=== PATIENT | male | born 1970 | race Caucasian/White ===

== ENCOUNTER 2016-06-13 15:20 | Emergency (ER) | payer SELFPAY ==
[~2016-06-13] VITALS: Ht 175.3 cm; Wt 98.0 kg
[2016-06-13 15:36] VITALS: BP 119/82; PULSE 91; RESP 16; TEMP 98.6; O2SAT 99
[2016-06-13] MEDS ORDERED: SODIUM CHLOR 0.9% 1000 ML INJ 1,000 ML IV SCH (16:44)
[2016-06-13] MEDS ORDERED: SODIUM CHLORIDE 0.9% FLUSH 5 ML FLUSH IVF PRN (16:45)
--- NOTE | 2016-06-13 16:50 | PD ---
HPI Chief Complaint: Abdominal Pain Time Seen by Provider: 16:44 Travel History International Travel<30 days: No Contact w/Intl Traveler<30days: No Traveled to known affect area: No History of Present Illness HPI The patient is a 46-year-old male who presents emergency department for lower abdominal pain or last several days. The patient a 7 day history of lower abdominal pain that started in the right lower quadrant, now radiates left lower quadrant, and is similar to his previous episodes of diverticulitis. He also complains of urinary irritation with occasional slight urinary overflow, also notes difficulty urinating. He does have a history of possible large prostate with difficulty passing a catheter in the past. Patient denies any actual dysuria, frequency, but occasionally does have urgency. He denies any nausea, vomiting, fever, chills, or sweats. The patient requests no pain medications in the emergency department. PFSH Past Medical History Blood Disorders: No Anxiety: Yes Depression: Yes Heart Rhythm Problems: No Cancer: No Cardiac Catheterization: No Cardiovascular Problems: No High Cholesterol: No Congestive Heart Failure: No Diabetes: No Diminished Hearing: No Diverticulitis: Yes (2006) Endocrine: No Gastrointestinal Disorders: Yes Genitourinary: No Hypertension: No Immune Disorder: No Implanted Vascular Access Dvce: No Musculoskeletal: No Neurologic: No Psychiatric: Yes Reproductive: No Respiratory: Yes Immunizations Current: Yes Myocardial Infarction: No Past Surgical History Coronary Artery Bypass Graft: No Oral Surgery: Yes (CYST REMOVAL FROM UNDER TONGUE) Other Surgery: Yes (HAND SURGERY (TENDON)) Social History Alcohol Use: No Tobacco Use: No (QUIT 4 MONTHS AGO) Substance Use: No Allergies-Medications (Allergen,Severity, Reaction): Coded Allergies: Latex (Verified Allergy, Severe, Rash, 06/13/16) Codeine (Verified Adverse Reaction, Severe, VOMITING, 06/13/16) Reported Meds & Prescriptions Reported Meds & Active Scripts Active No Active Prescriptions or Reported Medications Review of Systems Except as stated in HPI: all other systems reviewed are Neg General / Constitutional: No: Fever Cardiovascular: No: Chest Pain or Discomfort Respiratory: No: Shortness of Breath Gastrointestinal: Positive: Abdominal Pain, No: Nausea, Vomiting, Diarrhea Genitourinary: Positive: Urgency, Hesitancy, Incontinence, No: Frequency, Dysuria, Hematuria Physical Exam Narrative GENERAL: Awake, alert, 46-year-old male who appears his stated age and is in no acute respiratory distress. SKIN: Warm and dry. HEAD: Atraumatic. Normocephalic. EYES: No injection or drainage. ENT: No nasal bleeding or discharge. Mucous membranes pink and moist. NECK: Trachea midline. No JVD. CARDIOVASCULAR: Regular rate and rhythm. No murmur appreciated. RESPIRATORY: No accessory muscle use. Clear to auscultation. Breath sounds equal bilaterally. GASTROINTESTINAL: Abdomen soft, tender palpation left lower quadrant. No rebound tenderness, guarding, or rigidity. Genitourinary: Circumcised phallus. MUSCULOSKELETAL: No obvious deformities. No clubbing. No cyanosis. No edema. NEUROLOGICAL: Awake and alert. No obvious cranial nerve deficits. Motor grossly within normal limits. Normal speech. PSYCHIATRIC: Appropriate mood and affect; insight and judgment normal. Data Data Last Documented VS Vital Signs Date Time Temp Pulse Resp B/P Pulse Ox O2 Delivery O2 Flow Rate FiO2 06/13/16 15:36 98.6 91 16 119/82 99 Orders Complete Blood Count With Diff (06/13/16 16:44) Comprehensive Metabolic Panel (06/13/16 16:44) Urinalysis - C+S If Indicated (06/13/16 16:44) Ct Abd/Pel W/O Iv Contrast (06/13/16 16:44) Iv Access Insert/Monitor (06/13/16 16:44) Ecg Monitoring (06/13/16 16:44) Oximetry (06/13/16 16:44) Sodium Chlor 0.9% 1000 Ml Inj (Ns 1000 M (06/13/16 16:44) Sodium Chloride 0.9% Flush (Ns Flush) (06/13/16 16:45) Labs Laboratory Tests Test 06/13/16 16:55 White Blood Count 6.5 TH/MM3 Red Blood Count 5.33 MIL/MM3 Hemoglobin 16.0 GM/DL Hematocrit 47.2 % Mean Corpuscular Volume 88.5 FL Mean Corpuscular Hemoglobin 30.0 PG Mean Corpuscular Hemoglobin 33.9 % Concent Red Cell Distribution Width 13.1 % Platelet Count 272 TH/MM3 Mean Platelet Volume 7.6 FL Neutrophils (%) (Auto) 53.3 % Lymphocytes (%) (Auto) 37.8 % Monocytes (%) (Auto) 6.6 % Eosinophils (%) (Auto) 1.7 % Basophils (%) (Auto) 0.6 % Neutrophils # (Auto) 3.6 TH/MM3 Lymphocytes # (Auto) 2.4 TH/MM3 Monocytes # (Auto) 0.4 TH/MM3 Eosinophils # (Auto) 0.1 TH/MM3 Basophils # (Auto) 0.0 TH/MM3 CBC Comment DIFF FINAL Differential Comment Sodium Level 143 MEQ/L Potassium Level 4.1 MEQ/L Chloride Level 108 MEQ/L Carbon Dioxide Level 27.5 MEQ/L Anion Gap 8 MEQ/L Blood Urea Nitrogen 17 MG/DL Creatinine 1.40 MG/DL Estimat Glomerular Filtration 55 ML/MIN Rate Random Glucose 98 MG/DL Calcium Level 8.3 MG/DL Total Bilirubin 0.5 MG/DL Aspartate Amino Transf 21 U/L (AST/SGOT) Alanine Aminotransferase 32 U/L (ALT/SGPT) Alkaline Phosphatase 81 U/L Total Protein 7.1 GM/DL Albumin 3.4 GM/DL MDM Medical Decision Making Medical Screen Exam Complete: Yes Emergency Medical Condition: Yes Medical Record Reviewed: Yes Interpretation(s) Last Impressions Abdomen/Pelvis CT 06/13/16 1644 Signed Impressions: Service Date/Time: Monday, June 13, 2016 17:11 - CONCLUSION: 1. Questionable mild acute diverticulitis involving distal descending colon with no free air or fluid. 2. 2 mm nonobstructing left renal calculus. Yunier Chairez MD Laboratory Tests Test 06/13/16 16:55 White Blood Count 6.5 TH/MM3 Red Blood Count 5.33 MIL/MM3 Hemoglobin 16.0 GM/DL Hematocrit 47.2 % Mean Corpuscular Volume 88.5 FL Mean Corpuscular Hemoglobin 30.0 PG Mean Corpuscular Hemoglobin 33.9 % Concent Red Cell Distribution Width 13.1 % Platelet Count 272 TH/MM3 Mean Platelet Volume 7.6 FL Neutrophils (%) (Auto) 53.3 % Lymphocytes (%) (Auto) 37.8 % Monocytes (%) (Auto) 6.6 % Eosinophils (%) (Auto) 1.7 % Basophils (%) (Auto) 0.6 % Neutrophils # (Auto) 3.6 TH/MM3 Lymphocytes # (Auto) 2.4 TH/MM3 Monocytes # (Auto) 0.4 TH/MM3 Eosinophils # (Auto) 0.1 TH/MM3 Basophils # (Auto) 0.0 TH/MM3 CBC Comment DIFF FINAL Differential Comment Sodium Level 143 MEQ/L Potassium Level 4.1 MEQ/L Chloride Level 108 MEQ/L Carbon Dioxide Level 27.5 MEQ/L Anion Gap 8 MEQ/L Blood Urea Nitrogen 17 MG/DL Creatinine 1.40 MG/DL Estimat Glomerular Filtration 55 ML/MIN Rate Random Glucose 98 MG/DL Calcium Level 8.3 MG/DL Total Bilirubin 0.5 MG/DL Aspartate Amino Transf 21 U/L (AST/SGOT) Alanine Aminotransferase 32 U/L (ALT/SGPT) Alkaline Phosphatase 81 U/L Total Protein 7.1 GM/DL Albumin 3.4 GM/DL Differential Diagnosis Differential diagnosis includes diverticulitis, atypical appendicitis, abdominal abscess, BPH, urethritis, complicated urinary tract infection. Narrative Course IV was established, labs are drawn and sent, and the patient was placed on cardiac telemetry monitoring and continuous pulse oximetry monitoring. The patient requested that no pain medications be administered. IV fluids were ordered. CT of the abdomen and pelvis without IV contrast was ordered to evaluate for possible diverticulitis with abscess. UA was ordered, however, patient requested that no urinary catheterization be performed. White count is normal, creatinine is mildly elevated at 1.4. CT the abdomen and pelvis reveals mild acute diverticulitis involving distal descending colon with no free air or fluid. The bladder reveals no wall thickening or mass. The patient does have difficulty urinating, may be secondary to benign prostatic hypertrophy. The patient is advised to follow-up with urology for further evaluation and possible cystoscopy. The patient was placed on Cipro and Flagyl for his diverticulitis. He will also be provided a copy of his CT results and lab results at discharge for follow-up with his primary physician. Diagnosis Primary Impression: Diverticulitis Qualified Code: K57.32 - Diverticulitis of large intestine without perforation or abscess without bleeding Patient Instructions: General Instructions Additional Instructions: Please provide a patient a copy of his CT results and lab results at discharge. Cipro and Flagyl as directed. Return if symptoms worsen or progress. Med/Other Pt SpecificInfo: Prescription(s) given Scripts Ciprofloxacin (Cipro)500 Mg [id number] Mg PO BID 7 Days Ref 0 Prov:Mike Justice MD 06/13/16 Metronidazole (Flagyl)500 Mg [id number] Mg PO QID 7 Days Ref 0 Prov:Mike Justice MD 06/13/16 Disposition: 01 DISCHARGE HOME Condition: Stable Mike Justice MD Jun 13, 2016 16:49
[2016-06-13 17:01] LABS: AUTOMATED NEUTROPHIL # 3.6 TH/MM3 (1.8-7.7); BASOPHIL % 0.6 % (0.0-2.0); EOSINOPHIL # 0.1 TH/MM3 (0-0.4); EOSINOPHIL % 1.7 % (0.0-4.0); HEMATOCRIT 47.2 % (39.0-51.0); HEMO FLAGS DIFF FINAL; LYMPH % 37.8 % (9.0-44.0); LYMPHOCYTE # 2.4 TH/MM3 (1.0-4.8); MEAN CELL VOLUME 88.5 FL (80.0-100.0); MEAN CORPUSCULAR HGB CONC 33.9 % (32.0-36.0); MONO % 6.6 % (0.0-8.0); NEUT % 53.3 % (16.0-70.0); PLATELET COUNT 272 TH/MM3 (150-450); RED BLOOD COUNT 5.33 MIL/MM3 (4.50-5.90); RED CELL DISTRIBUTION WIDTH 13.1 % (11.6-17.2); WHITE BLOOD COUNT 6.5 TH/MM3 (4.0-11.0)
[2016-06-13 17:09] LABS: CHLORIDE 108 MEQ/L (98-107); POTASSIUM 4.1 MEQ/L (3.5-5.1); SODIUM (NA) 143 MEQ/L (136-145)
[2016-06-13 17:13] LABS: ANION GAP 8 MEQ/L (5-15); BICARBONATE 27.5 MEQ/L (21.0-32.0); BLOOD UREA NITROGEN 17 MG/DL (7-18)
[2016-06-13 17:16] LABS: ALT (GPT) 32 U/L (12-78); AST (GOT) 21 U/L (15-37); GLOMERULAR FILTRATION RATE 55 ML/MIN (>89)
[2016-06-13 17:18] LABS: TOTAL BILIRUBIN ADULT 0.5 MG/DL (0.2-1.0)
[2016-06-13 17:19] LABS: ALKALINE PHOSPHATASE 81 U/L (45-117)
--- NOTE | 2016-06-13 17:39 | RADHPO ---
EXAM DATE/TIME: 06/13/2016 17:11 [facility] COMPARISON: No previous studies available for comparison. INDICATIONS : Lower pelvic pain, diverticulitis. ORAL CONTRAST: No oral contrast ingested. RADIATION DOSE: 18.48 CTDIvol (mGy) MEDICAL HISTORY : None SURGICAL HISTORY : None. ENCOUNTER: Initial ACUITY: 1 day PAIN SCALE: 5/10 LOCATION: abdomen TECHNIQUE: Volumetric scanning of the abdomen and pelvis was performed. Using automated exposure control and ad justment of the mA and/or kV according to patient size, radiation dose was kept as low as reasonably achievable to obtain optimal diagnostic quality images. FINDINGS: LOWER LUNGS: The visualized lower lungs are clear. LIVER: Homogeneous density without lesion. There is no dilation of the biliary tree. No calcified gallston es. SPLEEN: Normal size without lesion. PANCREAS: Within normal limits. KIDNEYS: Normal in size and shape. There is no mass or hydronephrosis. There is a single 2 mm nonobstructing left renal calculus ADRENAL GLANDS: Within normal limits. VASCULAR: There is no aortic aneurysm. BOWEL/MESENTERY: There are multiple diverticuli involving the distal descending colon and sigmoid colon with questiona ble minimal inflammatory change along the distal descending colon with no free air or fluid.ABDOMINAL WALL: Within normal limits. RETROPERITONEUM: There is no lymphadenopathy. BLADDER: No wall thickening or mass. REPRODUCTIVE: Within normal limits. INGUINAL: There is no lymphadenopathy or hernia. MUSCULOSKELETAL: Within normal limits for patient age. CONCLUSION: 1. Questionable mild acute diverticulitis involving distal descending colon with no free air or fluid . 2. 2 mm nonobstructing left renal calculus. Yunier Chairez MD on June 13, 2016 at 17:34 Board Certified Radiologist. This report was verified electronically.
[2016-06-13] MEDS ORDERED: CIPR-9 PO (18:04)
[2016-06-13] MEDS ORDERED: METR-1 PO (18:04)
== END 2016-06-13 18:59 | disposition home or self-care (01) ==
LOC: PHED 15:20
DX: K57.32 Diverticulitis of large intestine without perforation or abscess without bleeding (principal); R30.0 Dysuria; R39.15 Urgency of urination; Z86.59 Personal history of other mental and behavioral disorders; Z87.19 Personal history of other diseases of the digestive system; Z87.891 Personal history of nicotine dependence
CPT/HCPCS: 74176; 80053; 85025; 99284; J7030

== ENCOUNTER 2016-12-06 18:34 | Emergency (ER) | payer SELFPAY ==
[~2016-12-06] VITALS: Ht 175.3 cm; Wt 100.5 kg
[~2016-12-06 18:34] MED LIST: CIPR-9 PO; METR-1 PO
[2016-12-06 18:48] VITALS: BP 121/77; PULSE 66; RESP 16; TEMP 98.4; O2SAT 98
[2016-12-06] MEDS ORDERED: PRED20 PO (19:38)
[2016-12-06] MEDS ORDERED: diphenhydrAMINE HCL 25 MG CAP PO ONE (19:45)
[2016-12-06] MEDS ORDERED: DEXAMETHASONE SOD PHOS 4 MG/ML VIAL IM ONE (19:45)
--- NOTE | 2016-12-06 20:03 | PD ---
HPI Chief Complaint: Skin Problem Time Seen by Provider: 19:53 Travel History International Travel<30 days: No Contact w/Intl Traveler<30days: No Traveled to known affect area: No History of Present Illness HPI 46-year-old male presents to the emergency room for evaluation of itchy rash to his bilateral upper extremities and abdomen for the past 2 days. Patient was trimming trees when he first developed a rash. He thought it was poison hetal and applied calamine lotion and apple cider vinegar but states it seems to be spreading. It is extremely itchy especially at night. Patient went to the pharmacy today for more topical medications and the pharmacist recommended he come to the emergency room for steroids. Patient denies sore throat, shortness of breath, difficulty breathing. No chronic medical conditions or daily medications. PFSH Past Medical History Blood Disorders: No Anxiety: Yes Depression: Yes Heart Rhythm Problems: No Cancer: No Cardiac Catheterization: No Cardiovascular Problems: No High Cholesterol: No Congestive Heart Failure: No Diabetes: No Diminished Hearing: No Diverticulitis: Yes (2006) Endocrine: No Gastrointestinal Disorders: Yes Genitourinary: No Hypertension: No Immune Disorder: No Implanted Vascular Access Dvce: No Musculoskeletal: No Neurologic: No Psychiatric: Yes Reproductive: No Respiratory: Yes Immunizations Current: Yes Myocardial Infarction: No Tetanus Vaccination: < 5 Years Influenza Vaccination: No Past Surgical History Coronary Artery Bypass Graft: No Oral Surgery: Yes (CYST REMOVAL FROM UNDER TONGUE) Other Surgery: Yes (HAND SURGERY (TENDON)) Social History Alcohol Use: No Tobacco Use: Yes (1 PPD) Substance Use: No Allergies-Medications (Allergen,Severity, Reaction): Coded Allergies: Latex (Verified Allergy, Severe, Rash, 12/06/16) Codeine (Verified Adverse Reaction, Severe, VOMITING, 12/06/16) Reported Meds & Prescriptions Reported Meds & Active Scripts Active Prednisone 20 Mg Tab 40 Mg PO DAILY Take 40 mg (2 tablets) daily for 5 days Review of Systems Except as stated in HPI: all other systems reviewed are Neg Physical Exam Narrative GENERAL: Well-nourished, well-developed male in no acute distress. Afebrile. Ambulatory. SKIN: Focused skin assessment warm/dry. Multiple linear raised erythematous lesions to bilateral upper extremities. There is a large patch of erythema with very tiny vesicles on the anterior abdomen. HEAD: Normocephalic. EYES: No scleral icterus. No injection or drainage. NECK: Supple, trachea midline. No JVD or lymphadenopathy. CARDIOVASCULAR: Regular rate and rhythm without murmurs, gallops, or rubs. RESPIRATORY: Breath sounds equal bilaterally. No accessory muscle use. PSYCHIATRIC: No delusional thought processes. No hallucinations. Data Data Last Documented VS Vital Signs Date Time Temp Pulse Resp B/P Pulse Ox O2 Delivery O2 Flow Rate FiO2 12/06/16 18:48 98.4 66 16 121/77 98 Orders Dexamethasone Inj (Decadron Inj) (12/06/16 19:45) Diphenhydramine (Benadryl) (12/06/16 19:45) Famotidine (Pepcid) (12/06/16 21:00) [facility] Medical Decision Making Medical Screen Exam Complete: Yes Emergency Medical Condition: Yes Medical Record Reviewed: Yes Differential Diagnosis Poison hetal, allergic dermatitis, scabies Narrative Course 46-year-old male presents to the emergency room for evaluation of itchy rash to bilateral upper extremities and abdomen for the past 2 days. Rash started after patient touched poison hetal. He went to the pharmacy and they recommended he come to the emergency room for steroids. Physical exam reveals a linear raised erythematous lesions to bilateral upper extremities and large area of erythema with tiny vesicles on the abdomen. Patient was given Decadron, Benadryl, and Pepcid in the emergency room and discharged with prescription for prednisone. Told to follow-up with a primary care physician or return for worsening symptoms. Understands and agrees to plan. Diagnosis Primary Impression: Poison hetal dermatitis Referrals: Primary Care Physician Patient Instructions: General Instructions, Poison Hetal (ED) Additional Instructions: Rest and drink plenty of fluids. Take prednisone as directed, until gone. Continue topical treatments for relief of itchiness. Follow-up with a primary care physician. Return to the emergency room for worsening symptoms. Med/Other Pt SpecificInfo: Prescription(s) given Scripts Prednisone 20 Mg Tab40 Mg PO DAILY #10 TAB Ref 0 Take 40 mg (2 tablets) daily for 5 days Prov:Ananth Miller MD 12/06/16 Disposition: 01 DISCHARGE HOME Condition: Stable Roseanne Payne Dec 06, 2016 20:03
[2016-12-06] MEDS ORDERED: FAMOTIDINE 20 MG TAB PO SCH (21:00)
== END 2016-12-06 20:15 | disposition home or self-care (01) ==
LOC: PHEFT 18:34
DX: L23.7 Allergic contact dermatitis due to plants, except food (principal)
CPT/HCPCS: 96372; 99284; J1100

== ENCOUNTER 2016-12-19 18:02 | Emergency (ER) | payer SELFPAY ==
[~2016-12-19] VITALS: Ht 175.3 cm; Wt 98.9 kg
[~2016-12-19 18:02] MED LIST changes: -CIPR-9 PO; -METR-1 PO; +PRED20 PO
[2016-12-19 18:09] VITALS: BP 131/78; PULSE 73; RESP 16; TEMP 98; O2SAT 98
[2016-12-19] MEDS ORDERED: PROPARACAINE HCL 0.5% OPHT SOLN 15 ML BTL EACH EYE ONE (19:00)
--- NOTE | 2016-12-19 19:09 | PD ---
HPI Chief Complaint: Foreign Body Time Seen by Provider: 18:55 Travel History International Travel<30 days: No Contact w/Intl Traveler<30days: No Traveled to known affect area: No History of Present Illness HPI 46-year-old male presents to the emergency room for evaluation of foreign body to his left eye that occurred earlier today. Patient was mowing the lawn with safety glasses but some dirt got under the glasses and stuck in his eye. He tried to rinse it out without success. Since then he has had increasing pain, foreign body sensation, redness, mild photophobia, and tearing of the left eye. Denies changes in visual acuity. Last tetanus was one year ago. PFSH Past Medical History Blood Disorders: No Anxiety: Yes Depression: Yes Heart Rhythm Problems: No Cancer: No Cardiac Catheterization: No Cardiovascular Problems: No High Cholesterol: No Congestive Heart Failure: No Diabetes: No Diminished Hearing: No Diverticulitis: Yes (2006) Endocrine: No Gastrointestinal Disorders: Yes Genitourinary: No Hypertension: No Immune Disorder: No Implanted Vascular Access Dvce: No Musculoskeletal: No Neurologic: No Psychiatric: Yes Reproductive: No Respiratory: Yes Immunizations Current: Yes Myocardial Infarction: No Past Surgical History Coronary Artery Bypass Graft: No Oral Surgery: Yes (CYST REMOVAL FROM UNDER TONGUE) Other Surgery: Yes (HAND SURGERY (TENDON)) Social History Alcohol Use: No Tobacco Use: Yes (1 PPD) Substance Use: No Allergies-Medications (Allergen,Severity, Reaction): Coded Allergies: latex (Unverified Allergy, Severe, Rash, 12/19/16) codeine (Unverified Adverse Reaction, Severe, VOMITING, 12/19/16) Reported Meds & Prescriptions Reported Meds & Active Scripts Active Erythromycin Opth Oint 5 Mg/Gm Oint 1 Applic LEFT EYE QID Review of Systems Except as stated in HPI: all other systems reviewed are Neg Physical Exam Narrative GENERAL: Well-nourished, well-developed male in no acute distress. Afebrile. Ambulatory. SKIN: Focused skin assessment warm/dry. HEAD: Normocephalic. EYES: PERRL, EOMI without pain, no discharge. Mild injection of the left eye. No scleral icterus. Visual acuity is 20/25 bilaterally. Fluorescein staining reveals foreign body at the 2 o'clock position and abrasion at the 5 o'clock position. Negative Jurgen sign. No significant photophobia on exam. Positive red light reflex. NECK: Supple, trachea midline. No JVD or lymphadenopathy. CARDIOVASCULAR: Regular rate and rhythm without murmurs, gallops, or rubs. RESPIRATORY: Breath sounds equal bilaterally. No accessory muscle use. PSYCHIATRIC: No delusional thought processes. No hallucinations. Data Data Last Documented VS Vital Signs Date Time Temp Pulse Resp B/P (MAP) Pulse Ox O2 Delivery O2 Flow Rate FiO2 12/19/16 18:09 98.0 73 16 131/78 (95) 98 Orders Orders Proparacaine 0.5% Opth Soln (Alcaine 0.5 (12/19/16 19:00) MDM Medical Decision Making Medical Screen Exam Complete: Yes Emergency Medical Condition: Yes Medical Record Reviewed: Yes Differential Diagnosis Corneal abrasion, ulceration, foreign body Narrative Course 46-year-old male presents to the emergency room for evaluation of foreign body to his left eye that occurred earlier today. Physical exam reveals foreign body at the 2 o'clock position of the left cornea. Visual acuity 20/25 bilaterally. Fluorescein staining reveals foreign body at the 2 o'clock position and abrasion at 5 o'clock position. Negative Jurgen sign. Foreign body was removed and patient discharged with prescription for erythromycin eye ointment. Told to follow up with a supervisor vacuum metalizing or return for worsening symptoms. He understands and agrees to plan. Diagnosis Primary Impression: Foreign body of left eye Qualified Codes: T15.92XA - Foreign body on external eye, part unspecified, left eye, initial encounter Referrals: User Interface Designer Additional Instructions: Rest and drink plenty of fluids. Apply ointment to affected eye 4 times daily for 3-5 days. Follow-up with a primary care physician. Return to the emergency room for worsening symptoms. Med/Other Pt SpecificInfo: Prescription(s) given Scripts Erythromycin Opth Oint (Erythromycin Opth Oint) 5 Mg/Gm Oint 1 APPLIC LEFT EYE QID for Infection, #1 TUBE 0 Refills Prov: Cruzito Wetzel MD 12/19/16 Disposition: 01 DISCHARGE HOME Condition: Stable Roseanne Payne Dec 19, 2016 19:09
[2016-12-19] MEDS ORDERED: ERYTOIN10 LEFT EYE (19:57)
== END 2016-12-19 20:18 | disposition home or self-care (01) ==
LOC: PHEFT 18:02
DX: T15.92XA Foreign body on external eye, part unspecified, left eye, initial encounter (principal); Y93.H2 Activity, gardening and landscaping
CPT/HCPCS: 99283

== ENCOUNTER 2017-01-05 13:41 | Emergency (ER) | payer SELFPAY ==
[~2017-01-05] VITALS: Ht 175.3 cm; Wt 99.0 kg
[~2017-01-05 13:41] MED LIST changes: +ERYTOIN10 LEFT EYE; -PRED20 PO
[2017-01-05 13:45] VITALS: BP 136/83; PULSE 66; RESP 18; TEMP 98.3
--- NOTE | 2017-01-05 14:41 | PD ---
HPI Chief Complaint: Back/ Neck Pain or Injury Time Seen by Provider: 14:03 Travel History International Travel<30 days: No Contact w/Intl Traveler<30days: No Traveled to known affect area: No History of Present Illness HPI 46 year-old male presents to the emergency room for evaluation of low back pain that started 1 week ago. Pain started while patient was trying to lift a heavy dresser up a flight of stairs. States he took a week off work because the pain was so severe. States he is here for a note to return to work tomorrow because his job has demanded it. He has been taking ibuprofen with moderate relief in symptoms. Pain is in the lower back and radiates to the left. No radiation down the leg. No saddle anesthesia, loss of bowel or bladder control, lower extremities seizures, IV drug use, fever, chills, weight loss. No chronic medical conditions or daily medications. History Past Medical Histgory Hx Cancer: No Social History Alcohol Use: No Tobacco Use: Yes (1 PPD) Allergies-Medications (Allergen,Severity, Reaction): Coded Allergies: latex (Unverified Allergy, Severe, Rash, 01/05/17) codeine (Unverified Adverse Reaction, Severe, VOMITING, 01/05/17) Reported Meds & Prescriptions Reported Meds & Active Scripts Active Review of Systems Except as stated in HPI: all other systems reviewed are Neg Physical Exam Narrative GENERAL: Well-nourished, well-developed male in no acute distress. Afebrile. Ambulatory. SKIN: Focused skin assessment warm/dry. No erythema or ecchymosis. HEAD: Normocephalic. EYES: No scleral icterus. No injection or drainage. NECK: Supple, trachea midline. No JVD or lymphadenopathy. CARDIOVASCULAR: Regular rate and rhythm without murmurs, gallops, or rubs. RESPIRATORY: Breath sounds equal bilaterally. No accessory muscle use. BACK: Midline tenderness. No obvious deformity. No CVA tenderness. Tenderness to palpation of the left lower paraspinous musculature. Data Data Last Documented VS Vital Signs Date Time Temp Pulse Resp B/P (MAP) Pulse Ox O2 Delivery O2 Flow Rate FiO2 01/05/17 13:45 98.3 66 18 136/83 (100) MDM Medical Screen Exam Complete: Yes Emergency Medical Condition: No Differential Diagnosis Back strain Narrative Course 46-year-old male presents to the emergency room for evaluation of low back pain that started 1 week ago after lifting a dresser the stairs. Pain has been improving with ibuprofen. No focal neurological deficits. No red flag symptoms. No midline tenderness. This is muscle strain. No indication for imaging at this time. Patient mostly presents for note to return to work. There are no urgent or emergent medical conditions at this time. Patient was given outpatient resources for follow-up. A medical screening exam was performed: At the time of evaluation the presenting medical condition was determined not to be of an emergent nature. The patient was given the option of receiving additional care, but declined. Patient was given options for additional community resources from which to obtain care. The Patient Has Been advised to seek medical attention for their presenting complaint. The patient has been advised to return to the ER at any time if an emergent condition develops. Primary Impression: Encounter for medical screening examination Condition: Roseanne Ramirez Jan 05, 2017 14:41
== END 2017-01-05 14:45 | disposition left against medical advice (07) ==
LOC: PHEFT 13:41
DX: Z02.89 Encounter for other administrative examinations (principal)
CPT/HCPCS: 99281

== ENCOUNTER 2017-02-08 20:08 | Emergency (ER) | payer SELFPAY ==
[~2017-02-08] VITALS: Ht 175.3 cm; Wt 99.1 kg
[2017-02-08 20:11] VITALS: BP 138/79; PULSE 75; RESP 16; TEMP 98.1; O2SAT 99
[2017-02-08] MEDS ORDERED: SODIUM CHLOR 0.9% 1000 ML INJ 1,000 ML IV SCH (20:23)
[2017-02-08] MEDS ORDERED: SODIUM CHLORIDE 0.9% FLUSH 10 ML FLUSH IV FLUSH PRN (20:30)
--- NOTE | 2017-02-08 20:36 | PD ---
HPI Chief Complaint: Abdominal Pain Time Seen by Provider: 20:23 Travel History International Travel<30 days: No Contact w/Intl Traveler<30days: No Traveled to known affect area: No History of Present Illness HPI 46-year-old male presents to the emergency department by private transportation the care of his spouse for evaluation of left lower quadrant abdominal pain and prior history of diverticulitis. Patient denies fever or chills. Patient denies chest pain or shortness of breath. Patient's had intermittent diaphoresis. Patient has noted no flank pain dysuria frequency urgency testicular pain or hematuria. Patient has noted mucoid and intermittent bloody stool. Patient rates pain 8/10 in intensity. Patient states symptoms of present for 3 days. Patient did take a one-time dose of Advil 400 mg yesterday around noon but is taking no medications today. Patient states he is trying to adjust his diet to increase fiber intake. Patient states he does experience some dizziness episodes. Patient denies any chronic medical conditions. PFSH Past Medical History Narrative Medical Review of medical records anxiety depression diverticulitis left hand tendon repair tobacco use; nursing notes reviewed Blood Disorders: No Anxiety: Yes Depression: Yes Heart Rhythm Problems: No Cancer: No Cardiac Catheterization: No Cardiovascular Problems: No High Cholesterol: No Congestive Heart Failure: No Diabetes: No Diminished Hearing: No Diverticulitis: Yes (2006) Endocrine: No Gastrointestinal Disorders: Yes Genitourinary: No Hypertension: No Immune Disorder: No Implanted Vascular Access Dvce: No Musculoskeletal: No Neurologic: No Psychiatric: Yes Reproductive: No Respiratory: Yes Immunizations Current: Yes Myocardial Infarction: No Past Surgical History Coronary Artery Bypass Graft: No Oral Surgery: Yes (CYST REMOVAL FROM UNDER TONGUE) Other Surgery: Yes (HAND SURGERY (TENDON)) Social History Alcohol Use: No Tobacco Use: Yes (1 PPD) Substance Use: No Allergies-Medications (Allergen,Severity, Reaction): Coded Allergies: latex (Unverified Allergy, Severe, Rash, 01/05/17) codeine (Unverified Adverse Reaction, Severe, VOMITING, 01/05/17) Reported Meds & Prescriptions Reported Meds & Active Scripts Active Review of Systems Except as stated in HPI: all other systems reviewed are Neg General / Constitutional: No: Fever, Chills HENT: No: Congestion Cardiovascular: Positive: Diaphoresis, No: Chest Pain or Discomfort Respiratory: No: Shortness of Breath Gastrointestinal: Positive: Nausea, Diarrhea, Abdominal Pain Genitourinary: No: Dysuria, Hematuria, Decreased Urinary Output, Flank Pain Musculoskeletal: No: Myalgias, Arthralgias Skin: No Rash Neurologic: Positive: Dizziness, No: Weakness, Syncope, Focal Abnormalities, Coordination Problem Psychiatric: No: Anxiety Endocrine: No: Heat Intolerance Hematologic/Lymphatic: No: Easy Bruising Physical Exam Narrative GENERAL: Well-developed well-nourished male in no acute distress no respiratory distress mild left lower quadrant tenderness to direct palpation without guarding or rebound SKIN: Warm and dry. HEAD: Normocephalic. EYES: No scleral icterus. No injection or drainage. NECK: Supple, trachea midline. No JVD or lymphadenopathy. CARDIOVASCULAR: Regular rate and rhythm without murmurs, gallops, or rubs. RESPIRATORY: Breath sounds equal bilaterally. No accessory muscle use. GASTROINTESTINAL: Abdomen soft, non-tender, nondistended. MUSCULOSKELETAL: No cyanosis, or edema. BACK: Nontender without obvious deformity. No CVA tenderness. Data Data Last Documented VS Vital Signs Date Time Temp Pulse Resp B/P (MAP) Pulse Ox O2 Delivery O2 Flow Rate FiO2 02/08/17 22:22 72 16 138/72 (94) 100 Room Air 02/08/17 20:11 98.1 Orders Orders Complete Blood Count With Diff (02/08/17 20:23) Comprehensive Metabolic Panel (02/08/17 20:23) Lipase (02/08/17 20:23) Lactic Acid (02/08/17 20:23) Urinalysis - C+S If Indicated (02/08/17 20:23) Iv Access Insert/Monitor (02/08/17 20:23) Ecg Monitoring (02/08/17 20:23) Oximetry (02/08/17 20:23) Sodium Chlor 0.9% 1000 Ml Inj (Ns 1000 M (02/08/17 20:23) Sodium Chloride 0.9% Flush (Ns Flush) (02/08/17 20:30) Ct Abd/Pel W Iv Contrast(Rout) (02/08/17 ) Ketorolac Inj (Toradol Inj) (02/08/17 21:30) Ondansetron Inj (Zofran Inj) (02/08/17 21:30) Iohexol 350 Inj (Omnipaque 350 Inj) (02/08/17 21:48) Ed Discharge Order (02/08/17 22:26) Labs Laboratory Tests Test 02/08/17 20:25 White Blood Count 8.3 TH/MM3 Red Blood Count 5.32 MIL/MM3 Hemoglobin 16.3 GM/DL Hematocrit 47.6 % Mean Corpuscular Volume 89.4 FL Mean Corpuscular Hemoglobin 30.5 PG Mean Corpuscular Hemoglobin Concent 34.1 % Red Cell Distribution Width 12.2 % Platelet Count 233 TH/MM3 Mean Platelet Volume 8.2 FL Neutrophils (%) (Auto) 41.8 % Lymphocytes (%) (Auto) 47.5 % Monocytes (%) (Auto) 6.4 % Eosinophils (%) (Auto) 3.8 % Basophils (%) (Auto) 0.5 % Neutrophils # (Auto) 3.5 TH/MM3 Lymphocytes # (Auto) 4.0 TH/MM3 Monocytes # (Auto) 0.5 TH/MM3 Eosinophils # (Auto) 0.3 TH/MM3 Basophils # (Auto) 0.0 TH/MM3 CBC Comment DIFF FINAL Differential Comment Urine Color YELLOW Urine Turbidity CLEAR Urine pH 6.0 Urine Specific [place] 1.020 Urine Protein NEG mg/dL Urine Glucose (UA) NEG mg/dL Urine Ketones NEG mg/dL Urine Occult Blood NEG Urine Nitrite NEG Urine Bilirubin NEG Urine Leukocyte Esterase NEG Urine WBC 0-2 /hpf Urine Squamous Epithelial Cells 0-5 /hpf Microscopic Urinalysis Comment CULT NOT INDICATED Blood Urea Nitrogen 17 MG/DL Creatinine 1.10 MG/DL Random Glucose 119 MG/DL Total Protein 7.2 GM/DL Albumin 3.5 GM/DL Calcium Level 8.5 MG/DL Alkaline Phosphatase 75 U/L Aspartate Amino Transf (AST/SGOT) 15 U/L Alanine Aminotransferase (ALT/SGPT) 24 U/L Total Bilirubin 0.2 MG/DL Sodium Level 137 MEQ/L Potassium Level 3.9 MEQ/L Chloride Level 104 MEQ/L Carbon Dioxide Level 26.6 MEQ/L Anion Gap 6 MEQ/L Estimat Glomerular Filtration Rate 72 ML/MIN Lactic Acid Level 1.1 mmol/L Lipase 232 U/L MDM Medical Decision Making Medical Screen Exam Complete: Yes Emergency Medical Condition: Yes Medical Record Reviewed: Yes Interpretation(s) Lactic acid: 1.1, not elevated ua: wnl Last Impressions Abdomen/Pelvis CT 02/08/17 0000 Signed Impressions: Service Date/Time: Wednesday, February 08, 2017 21:43 - CONCLUSION: 1. Stable tiny 3 mm nonobstructing stone left kidney. 2. Diverticulosis of the descending and sigmoid colon without inflammatory changes. 3. No acute pathology. Jamin Verdin MD CBC & BMP Diagram 02/08/17 20:25 Total Protein 7.2, Albumin 3.5, Calcium Level 8.5, Alkaline Phosphatase 75, Aspartate Amino Transf (AST/SGOT) 15, Alanine Aminotransferase (ALT/SGPT) 24, Total Bilirubin 0.2 Vital Signs Date Time Temp Pulse Resp B/P (MAP) Pulse Ox O2 Delivery O2 Flow Rate FiO2 02/08/17 22:22 72 16 138/72 (94) 100 Room Air 02/08/17 20:11 98.1 75 16 138/79 (98) 99 Differential Diagnosis Abdominal pain, diverticulitis, abscess, colitis, renal colic, UTI, anemia, unlikely viscus perforation Narrative Course Patient placed on monitor IV access obtained specimens collected and sent for resulting patient career advisor normal saline 1 L Patient waiting on lab results resting comfortably voicing no concerns or complaints CBC is automated differential metabolic panel and urinalysis values are found to be in normal range patient continues complaining of left lower quadrant abdominal pain therefore will proceed with CT abdomen and pelvis with IV contrast Patient administered Zofran 4 mg IV and Toradol [address] abdomen and pelvis with IV contrast identifies 3 mm lower pole left kidney stone but no evidence of hydronephrosis hydroureter or obstructive process abdomen and pelvis imaging study otherwise remarkable for scattered diverticulosis without evidence of diverticulitis no abscess no perforation appendix is normal. Otherwise to be a unremarkable CT per reading radiologist Laboratory results and imaging results discussed with patient was spouse at bedside; patient's questions were answered to his satisfaction; patient is informed of normal lab values and left sided kidney stone diverticulosis without evidence for acute process and stable for outpatient management. Patient encouraged to return to the emergency department for any concerns or change in condition. Patient encouraged to follow-up with gastrologist as needed and primary care provider. Diagnosis Primary Impression: Abdominal pain Qualified Codes: R10.32 - Left lower quadrant pain Additional Impression: Nephrolithiasis Referrals: [facility] as needed Patient Instructions: General Instructions Additional Instructions: Increase fluid hydration Continue add fiber containing foods and beverages to dietary intake Follow-up with primary care provider Follow up with gastrologist Return to the emergency department for any concerns or change in condition Take the medicine/Tylenol as needed for fever 100.4F or greater take ibuprofen 600 mg as often as every 6 hours or 800 mg as often as every 8 hours as needed for fever 100.4F or greater or for pain associated with inflammation; avoid high-dose 800 mg use of ibuprofen on a regular basis Med/Other Pt SpecificInfo: No Meds Exist/No RX given Disposition: 01 DISCHARGE HOME Condition: Stable Jesusita Turcios MD Feb 08, 2017 20:36
[2017-02-08 20:56] LABS: AUTOMATED NEUTROPHIL # 3.5 TH/MM3 (1.8-7.7); BASOPHIL % 0.5 % (0.0-2.0); BLOOD, URINE NEG (NEG); EOSINOPHIL # 0.3 TH/MM3 (0-0.4); EOSINOPHIL % 3.8 % (0.0-4.0); GLUCOSE,URINE NEG (NEG); HEMATOCRIT 47.6 % (39.0-51.0); HEMO FLAGS DIFF FINAL; KETONE, URINE NEG (NEG); LYMPH % 47.5 % (9.0-44.0); MEAN CELL VOLUME 89.4 FL (80.0-100.0); MEAN CORPUSCULAR HEMOGLOBIN 30.5 PG (27.0-34.0); MEAN CORPUSCULAR HGB CONC 34.1 % (32.0-36.0); MONO % 6.4 % (0.0-8.0); NEUT % 41.8 % (16.0-70.0); NITRITE,URINE NEG (NEG); PLATELET COUNT 233 TH/MM3 (150-450); RED BLOOD COUNT 5.32 MIL/MM3 (4.50-5.90); RED CELL DISTRIBUTION WIDTH 12.2 % (11.6-17.2); WHITE BLOOD COUNT 8.3 TH/MM3 (4.0-11.0)
[2017-02-08 21:02] LABS: COMMENT (UR) CULT NOT INDICATED; CULTURE IF INDICATED CULT NOT INDICATED; SQUAMOUS EPITHELIAL CELL URINE 0-5 /hpf (0-5); URINE COLOR YELLOW (YELLW/STRAW); WBC, URINE 0-2 /hpf (0-5)
[2017-02-08 21:09] LABS: CHLORIDE 104 MEQ/L (98-107); POTASSIUM 3.9 MEQ/L (3.5-5.1); SODIUM (NA) 137 MEQ/L (136-145)
[2017-02-08 21:12] LABS: ANION GAP 6 MEQ/L (5-15); BICARBONATE 26.6 MEQ/L (21.0-32.0)
[2017-02-08 21:13] LABS: BLOOD UREA NITROGEN 17 MG/DL (7-18)
[2017-02-08 21:15] LABS: ALT (GPT) 24 U/L (12-78); AST (GOT) 15 U/L (15-37)
[2017-02-08 21:16] LABS: GLOMERULAR FILTRATION RATE 72 ML/MIN (>89)
[2017-02-08 21:17] LABS: TOTAL BILIRUBIN ADULT 0.2 MG/DL (0.2-1.0)
[2017-02-08 21:18] LABS: ALKALINE PHOSPHATASE 75 U/L (45-117)
[2017-02-08] MEDS ORDERED: KETOROLAC TROMETHAMINE 30 MG/ML (IVP) VIAL IV PUSH ONE (21:30)
[2017-02-08] MEDS ORDERED: ONDANSETRON HCL 4 MG/2 ML VIAL IV PUSH ONE (21:30)
[2017-02-08] MEDS ORDERED: IOHEXOL 350 MG/ML 10 ML VIAL (for RAD DIAG) IVCONTRAST ONE (21:48)
--- NOTE | 2017-02-08 22:14 | RADRPT ---
EXAM DATE/TIME: 02/08/2017 21:43 [facility] COMPARISON: CT ABDOMEN & PELVIS W/O CONTRAST, June 13, 2016, 17:11. INDICATIONS : Lower abdomen pain with nausea, vomiting, and diarrhea. IV CONTRAST: 100 cc Omnipaque 350 (iohexol) IV ORAL CONTRAST: No oral contrast ingested. RADIATION DOSE: 21.05 CTDIvol (mGy) MEDICAL HISTORY : Diverticulitis. SURGICAL HISTORY : None. ENCOUNTER: Initial ACUITY: 3 days PAIN SCALE: 7/10 LOCATION: lower quadrant abdomen TECHNIQUE: Volumetric scanning of the abdomen and pelvis was performed. Using automated exposure control and ad justment of the mA and/or kV according to patient size, radiation dose was kept as low as reasonably achievable to obtain optimal diagnostic quality images. DICOM format image data is available electro nically for review and comparison. FINDINGS: LOWER LUNGS: The visualized lower lungs are clear. LIVER: Homogeneous density without lesion. There is no dilation of the biliary tree. No calcified gallston es. SPLEEN: Normal size without lesion. PANCREAS: Within normal limits. KIDNEYS: Normal in size and shape. There is no mass or hydronephrosis. Stable tiny 3 mm stone lower pole left kidney not causing obstruction. Ureters are nondilated. ADRENAL GLANDS: Within normal limits. VASCULAR: There is no aortic aneurysm. BOWEL/MESENTERY: The stomach, small bowel, and colon demonstrate no acute abnormality. There is no free intraperitone al air or fluid. The appendix is unremarkable. Scatter diverticulosis of the descending and sigmoid c olon without inflammatory changes. ABDOMINAL WALL: Within normal limits. RETROPERITONEUM: There is no lymphadenopathy. BLADDER: No wall thickening or mass. REPRODUCTIVE: Within normal limits. INGUINAL: There is no lymphadenopathy or hernia. MUSCULOSKELETAL: Within normal limits for patient age. No significant changes compared to the prior study. CONCLUSION: 1. Stable tiny 3 mm nonobstructing stone left kidney. 2. Diverticulosis of the descending and sigmoid colon without inflammatory changes. 3. No acute pathology. Jamin Verdin MD on February 08, 2017 at 22:09 Board Certified Radiologist. This report was verified electronically.
[2017-02-08 22:22] VITALS: BP 138/72; PULSE 72; RESP 16; O2SAT 100
== END 2017-02-08 22:41 | disposition home or self-care (01) ==
LOC: PHED 20:08
DX: R10.32 Left lower quadrant pain (principal); N20.0 Calculus of kidney
CPT/HCPCS: 74177; 80053; 81001; 83605; 83690; 85025; 96361; 96374; 96375; 99285; J1885; J2405; J7030; Q9967

== ENCOUNTER 2017-03-13 19:18 | Emergency (ER) | payer SELFPAY ==
[~2017-03-13] VITALS: Ht 175.3 cm; Wt 100.8 kg
[2017-03-13 19:57] VITALS: BP 125/77; PULSE 72; RESP 20; TEMP 98.6; O2SAT 98
--- NOTE | 2017-03-13 20:19 | PD ---
HPI Chief Complaint: Flank/Kidney Pain Time Seen by Provider: 20:19 Travel History International Travel<30 days: No Contact w/Intl Traveler<30days: No Traveled to known affect area: No History of Present Illness HPI 47-year-old male came to the emergency room with history of right flank pain that has been going on for past 2 weeks. Patient says that he was diagnosed with a renal calculi by an MRI. He does have associated urgency, frequency and dysuria. Pain gets worse when he coughs. Currently at 7-8 out of 10. No history of fever or chills. No history of nausea or vomiting. Patient does have history of kidney stones as well as diverticulitis. Vital signs were otherwise stable. No history of hematuria. No history of blood in his urine. [facility] Past Medical History Narrative Medical List of his past medical, surgical, social and family history is reviewed from the nursing note. Blood Disorders: No Anxiety: Yes Depression: Yes Heart Rhythm Problems: No Cancer: No Cardiac Catheterization: No Cardiovascular Problems: No High Cholesterol: No Congestive Heart Failure: No Diabetes: No Diminished Hearing: No Diverticulitis: Yes (2006) Endocrine: No Gastrointestinal Disorders: Yes Genitourinary: No Hypertension: No Immune Disorder: No Implanted Vascular Access Dvce: No Musculoskeletal: No Neurologic: No Psychiatric: Yes Reproductive: No Respiratory: Yes Immunizations Current: Yes Myocardial Infarction: No Past Surgical History Coronary Artery Bypass Graft: No Oral Surgery: Yes (CYST REMOVAL FROM UNDER TONGUE) Other Surgery: Yes (HAND SURGERY (TENDON)) Social History Alcohol Use: Yes (OCCASIONALLY) Tobacco Use: Yes (1 PPD) Substance Use: No Allergies-Medications (Allergen,Severity, Reaction): Coded Allergies: latex (Unverified Allergy, Severe, Rash, 03/20/17) codeine (Unverified Adverse Reaction, Severe, VOMITING, 03/20/17) Comments List of his allergies reviewed from the nursing note. Reported Meds & Prescriptions Reported Meds & Active Scripts Active Narrative Medication List of his home medications reviewed from the nursing note. Review of Systems Except as stated in HPI: all other systems reviewed are Neg Genitourinary: Positive: Flank Pain Physical Exam Narrative GENERAL: Awake, alert, moderate distress SKIN: Focused skin assessment warm/dry. HEAD: Atraumatic. Normocephalic. EYES: Pupils equal and round. No scleral icterus. No injection or drainage. ENT: No nasal bleeding or discharge. Mucous membranes pink and moist. NECK: Trachea midline. No JVD. CARDIOVASCULAR: Regular rate and rhythm. No murmur appreciated. RESPIRATORY: No accessory muscle use. Clear to auscultation. Breath sounds equal bilaterally. GASTROINTESTINAL: Abdomen soft, non-tender, nondistended. Hepatic and splenic margins not palpable. MUSCULOSKELETAL: No obvious deformities. No clubbing. No cyanosis. No edema. NEUROLOGICAL: Awake and alert. No obvious cranial nerve deficits. Motor grossly within normal limits. Normal speech. PSYCHIATRIC: Appropriate mood and affect; insight and judgment normal. Data Data Last Documented VS Orders Orders Complete Blood Count With Diff (03/13/17 20:22) Basic Metabolic Panel (Bmp) (03/13/17 20:22) Urinalysis - C+S If Indicated (03/13/17 20:22) Ct Abd/Pel W/O Iv Contrast (03/13/17 20:22) Ecg Monitoring (03/13/17 20:22) Iv Access Insert/Monitor (03/13/17 20:22) Ketorolac Inj (Toradol Inj) (03/13/17 20:30) Morphine Inj (Morphine Inj) (03/13/17 20:30) Ondansetron Inj (Zofran Inj) (03/13/17 20:30) Sodium Chloride 0.9% Flush (Ns Flush) (03/13/17 20:30) Sodium Chlor 0.9% 1000 Ml Inj (Ns 1000 M (03/13/17 20:22) Ed Discharge Order (03/13/17 22:31) Labs Laboratory Tests Test 03/13/17 20:32 03/13/17 20:40 Urine Color YELLOW Urine Turbidity CLEAR Urine pH 6.0 Urine Specific [place] 1.028 Urine Protein NEG mg/dL Urine Glucose (UA) NEG mg/dL Urine Ketones NEG mg/dL Urine Occult Blood NEG Urine Nitrite NEG Urine Bilirubin NEG Urine Leukocyte Esterase NEG Urine WBC 0-2 /hpf Urine Squamous Epithelial Cells 0-5 /hpf Microscopic Urinalysis Comment CULT NOT INDICATED White Blood Count 7.4 TH/MM3 Red Blood Count 5.36 MIL/MM3 Hemoglobin 16.5 GM/DL Hematocrit 47.9 % Mean Corpuscular Volume 89.4 FL Mean Corpuscular Hemoglobin 30.9 PG Mean Corpuscular Hemoglobin Concent 34.5 % Red Cell Distribution Width 12.9 % Platelet Count 232 TH/MM3 Mean Platelet Volume 8.0 FL Neutrophils (%) (Auto) 42.0 % Lymphocytes (%) (Auto) 46.9 % Monocytes (%) (Auto) 8.1 % Eosinophils (%) (Auto) 2.5 % Basophils (%) (Auto) 0.5 % Neutrophils # (Auto) 3.1 TH/MM3 Lymphocytes # (Auto) 3.5 TH/MM3 Monocytes # (Auto) 0.6 TH/MM3 Eosinophils # (Auto) 0.2 TH/MM3 Basophils # (Auto) 0.0 TH/MM3 CBC Comment DIFF FINAL Differential Comment Blood Urea Nitrogen 14 MG/DL Creatinine 1.10 MG/DL Random Glucose 91 MG/DL Calcium Level 8.1 MG/DL Sodium Level 141 MEQ/L Potassium Level 3.6 MEQ/L Chloride Level 107 MEQ/L Carbon Dioxide Level 25.8 MEQ/L Anion Gap 8 MEQ/L Estimat Glomerular Filtration Rate 72 ML/MIN MDM Medical Decision Making Medical Screen Exam Complete: Yes Emergency Medical Condition: Yes Medical Record Reviewed: Yes Differential Diagnosis Ureteral colic, pyelonephritis, musculoskeletal pain, lumbar radiculopathy Narrative Course 8:26 PM patient was medicated for pain. He is getting 1 L of IV fluid bolus. Awaiting for blood test and CAT scan to be done and resulted. 10:31 PM patient's blood test results and UA are within normal limits. CT scan is negative for anything acute. I'll discharge him home. Procedures EKG Prior to Arrival: No Diagnosis Primary Impression: Musculoskeletal pain Additional Impression: Acute exacerbation of chronic low back pain Referrals: Primary Care Physician Med/Other Pt SpecificInfo: Prescription(s) given Disposition: 01 DISCHARGE HOME Condition: Stable Danna Givens MD Mar 13, 2017 20:19
[2017-03-13] MEDS ORDERED: SODIUM CHLOR 0.9% 1000 ML INJ 1,000 ML IV ONE (20:22)
[2017-03-13 20:30] VITALS: BP 132/75; PULSE 62; RESP 18; O2SAT 97
[2017-03-13] MEDS ORDERED: KETOROLAC TROMETHAMINE 30 MG/ML (IVP) VIAL IV PUSH ONE (20:30)
[2017-03-13] MEDS ORDERED: MORPHINE SULFATE 4 MG/ML INJ IV PUSH ONE (20:30)
[2017-03-13] MEDS ORDERED: ONDANSETRON HCL 4 MG/2 ML VIAL IV PUSH ONE (20:30)
[2017-03-13] MEDS ORDERED: SODIUM CHLORIDE 0.9% FLUSH 10 ML FLUSH IVF PRN (20:30)
[2017-03-13 21:08] LABS: AUTOMATED NEUTROPHIL # 3.1 TH/MM3 (1.8-7.7); BASOPHIL % 0.5 % (0.0-2.0); EOSINOPHIL # 0.2 TH/MM3 (0-0.4); EOSINOPHIL % 2.5 % (0.0-4.0); HEMATOCRIT 47.9 % (39.0-51.0); HEMO FLAGS DIFF FINAL; LYMPH % 46.9 % (9.0-44.0); LYMPHOCYTE # 3.5 TH/MM3 (1.0-4.8); MEAN CELL VOLUME 89.4 FL (80.0-100.0); MEAN CORPUSCULAR HEMOGLOBIN 30.9 PG (27.0-34.0); MEAN CORPUSCULAR HGB CONC 34.5 % (32.0-36.0); MONO % 8.1 % (0.0-8.0); PLATELET COUNT 232 TH/MM3 (150-450); RED BLOOD COUNT 5.36 MIL/MM3 (4.50-5.90); RED CELL DISTRIBUTION WIDTH 12.9 % (11.6-17.2); WHITE BLOOD COUNT 7.4 TH/MM3 (4.0-11.0)
[2017-03-13 21:15] LABS: BLOOD, URINE NEG (NEG); GLUCOSE,URINE NEG (NEG); KETONE, URINE NEG (NEG); NITRITE,URINE NEG (NEG)
[2017-03-13 21:23] LABS: POTASSIUM 3.6 MEQ/L (3.5-5.1)
[2017-03-13 21:27] LABS: BICARBONATE 25.8 MEQ/L (21.0-32.0)
[2017-03-13 21:33] LABS: URINE COLOR YELLOW (YELLW/STRAW)
[2017-03-13 21:34] LABS: COMMENT (UR) CULT NOT INDICATED; CULTURE IF INDICATED CULT NOT INDICATED; SQUAMOUS EPITHELIAL CELL URINE 0-5 /hpf (0-5); WBC, URINE 0-2 /hpf (0-5)
--- NOTE | 2017-03-13 22:26 | RADRPT ---
EXAM DATE/TIME: 03/13/2017 21:02 [facility] COMPARISON: CT ABDOMEN & PELVIS W/O CONTRAST, June 13, 2016, 17:11. INDICATIONS : Right flank pain. ORAL CONTRAST: No oral contrast ingested. RADIATION DOSE: 20.84 CTDIvol (mGy) MEDICAL HISTORY : Diabetes mellitus type 2. SURGICAL HISTORY : None. ENCOUNTER: Initial ACUITY: 1 day PAIN SCALE: 8/10 LOCATION: Right flank TECHNIQUE: Volumetric scanning of the abdomen and pelvis was performed. Using automated exposure control and adjustment of the mA and/or kV according to patient size, radiation dose was kept as low as reasonably achievable to obtain optimal diagnostic quality images. DICOM format image data is av ailable electronically for review and comparison. FINDINGS: There are nonobstructing renal stones seen bilaterally. This includes a 5 mm stone in the inferior left collecting system and a 3 mm stone in the superior right collecting system. There is no hydronephrosis. A renal mass is not seen. There are a few scattered tiny subcentimeter hyperdensities in the liver. This could represent a sma ll cyst or hemangiomas. They are nonspecific on this noncontrast CT examination. No calcified galls tones are seen. The spleen, pancreas and adrenal glands are normal. The aorta and IVC are unremarka ble. The appendix is normal. There are scattered diverticula seen in the colon particularly on the l eft side. Significant inflammatory change is not seen. Prostatic calcifications are present. Pelvic structures appear otherwise normal. CONCLUSION: 1. Bilateral small nonobstructing renal stones. 2. Scattered colonic diverticula without significant inflammatory change. 3. Tiny hypodensities in the liver likely representing small cysts or hemangiomas statistically. They are nonspecific on this noncontrast CT examination. Andrei Villagran MD on March 13, 2017 at 22:16 Board Certified Radiologist. This report was verified electronically.
[2017-03-13] MEDS ORDERED: IBUP-232 PO (22:32)
[2017-03-13 23:05] VITALS: BP 99/65; PULSE 67; RESP 16; O2SAT 98
== END 2017-03-13 23:26 | disposition home or self-care (01) ==
LOC: PHED 19:18
DX: M79.1 Myalgia (principal); M54.5 Low back pain; G89.29 Other chronic pain; N20.0 Calculus of kidney
CPT/HCPCS: 74176; 80048; 81001; 85025; 96361; 96374; 96375; 99285; J1885; J2270; J2405; J7030

== ENCOUNTER 2017-03-20 16:57 | Emergency (ER) | payer SELFPAY ==
[~2017-03-20] VITALS: Ht 175.3 cm; Wt 100.0 kg
[~2017-03-20 16:57] MED LIST changes: -ERYTOIN10 LEFT EYE; +IBUP-232 PO
[2017-03-20 16:59] VITALS: BP 131/82; PULSE 82; RESP 17; TEMP 98.3; O2SAT 99
== END 2017-03-20 18:10 | disposition left against medical advice (07) ==
LOC: NEPK 16:57
DX: M54.9 Dorsalgia, unspecified (principal); Z53.21 Procedure and treatment not carried out due to patient leaving prior to being seen by health care provider
CPT/HCPCS: 99281

== ENCOUNTER 2017-04-09 17:04 | Emergency (ER) | payer SELFPAY ==
[~2017-04-09] VITALS: Ht 175.3 cm; Wt 103.0 kg
[2017-04-09 17:06] VITALS: BP 136/85; PULSE 92; RESP 16; TEMP 99.2; O2SAT 96
[2017-04-09] MEDS ORDERED: SODIUM CHLOR 0.9% 1000 ML INJ 1,000 ML IV SCH (17:32)
--- NOTE | 2017-04-09 17:35 | PD ---
HPI Chief Complaint: Abdominal Pain Time Seen by Provider: 17:27 Travel History International Travel<30 days: No Contact w/Intl Traveler<30days: No Traveled to known affect area: No History of Present Illness HPI 47-year-old male here for evaluation of abdominal pain. The patient has history of diverticulitis and believes that this may be causing his pain. Pain is located in his right lower quadrant, has been there for about a week, described as sharp/stabbing, 8 out of 10, intermittently worse at times, worse with movements. He denies fevers or chills. No nausea or vomiting. No diarrhea. No melena or hematochezia. He has been having increased or frequency , however denies dysuria or hematuria. No pain or swelling. No decrease in appetite. He has not had a colonoscopy. PFSH Past Medical History Blood Disorders: No Anxiety: Yes Depression: Yes Heart Rhythm Problems: No Cancer: No Cardiac Catheterization: No Cardiovascular Problems: No High Cholesterol: No Congestive Heart Failure: No Diabetes: No Diminished Hearing: No Diverticulitis: Yes (2006) Endocrine: No Gastrointestinal Disorders: Yes Genitourinary: No Hypertension: No Immune Disorder: No Implanted Vascular Access Dvce: No Musculoskeletal: No Neurologic: No Psychiatric: Yes Reproductive: No Respiratory: Yes Immunizations Current: Yes Myocardial Infarction: No Past Surgical History Coronary Artery Bypass Graft: No Oral Surgery: Yes (CYST REMOVAL FROM UNDER TONGUE) Other Surgery: Yes (HAND SURGERY (TENDON)) Social History Alcohol Use: Yes (OCCASIONALLY) Tobacco Use: Yes (1 PPD) Substance Use: No Allergies-Medications (Allergen,Severity, Reaction): Coded Allergies: latex (Unverified Allergy, Severe, Rash, 04/09/17) codeine (Unverified Adverse Reaction, Severe, VOMITING, 04/09/17) Reported Meds & Prescriptions Reported Meds & Active Scripts Active Review of Systems Except as stated in HPI: all other systems reviewed are Neg Physical Exam Narrative GENERAL: Well-developed, well-nourished, comfortable, no apparent distress. SKIN: Focused skin assessment warm/dry. No rash. HEAD: Atraumatic. Normocephalic. EYES: Pupils equal and round. No scleral icterus. No injection or drainage. ENT: Mucous membranes pink and moist. NECK: Trachea midline. No JVD. CARDIOVASCULAR: Regular rate and rhythm. No murmur appreciated. RESPIRATORY: No accessory muscle use. Clear to auscultation. Breath sounds equal bilaterally. GASTROINTESTINAL: Abdomen soft, nondistended. Moderate right lower quadrant tenderness without arterial signs. Rest of abdomen is soft and nontender. No hernias. Normal bowel sounds. : Normal exam without hernias, masses, or swelling. MUSCULOSKELETAL: No obvious deformities. No clubbing. No cyanosis. No edema. NEUROLOGICAL: Awake and alert. No obvious cranial nerve deficits. Motor grossly within normal limits. Normal speech. PSYCHIATRIC: Appropriate mood and affect; insight and judgment normal. Data Data Last Documented VS Vital Signs Date Time Temp Pulse Resp B/P (MAP) Pulse Ox O2 Delivery O2 Flow Rate FiO2 04/09/17 19:06 Room Air 04/09/17 17:06 99.2 92 16 96 Orders Orders Complete Blood Count With Diff (04/09/17 17:32) Comprehensive Metabolic Panel (04/09/17 17:32) Lipase (04/09/17 17:32) Prothrombin Time / Inr (Pt) (04/09/17 17:32) Act Partial Throm Time (Ptt) (04/09/17 17:32) Urinalysis - C+S If Indicated (04/09/17 17:32) Ct Abd/Pel W Iv Contrast(Rout) (04/09/17 17:32) Iv Access Insert/Monitor (04/09/17 17:32) Ecg Monitoring (04/09/17 17:32) Oximetry (04/09/17 17:32) Morphine Inj (Morphine Inj) (04/09/17 17:45) Ondansetron Inj (Zofran Inj) (04/09/17 17:45) Sodium Chlor 0.9% 1000 Ml Inj (Ns 1000 M (04/09/17 17:32) Sodium Chloride 0.9% Flush (Ns Flush) (04/09/17 17:45) Oral Contrast - Adult (04/09/17 17:37) Diatrizoate Liq ( Gastroview Liq) (04/09/17 18:00) Iohexol 350 Inj (Omnipaque 350 Inj) (04/09/17 19:16) Labs Laboratory Tests Test 04/09/17 17:35 04/09/17 17:40 Urine Color YELLOW Urine Turbidity CLEAR Urine pH 5.5 Urine Specific [place] 1.022 Urine Protein NEG mg/dL Urine Glucose (UA) NEG mg/dL Urine Ketones NEG mg/dL Urine Occult Blood NEG Urine Nitrite NEG Urine Bilirubin NEG Urine Urobilinogen LESS THAN 2.0 MG/DL Urine Leukocyte Esterase NEG Urine RBC LESS THAN 1 /hpf Urine WBC LESS THAN 1 /hpf Urine Squamous Epithelial Cells <1 /hpf Urine Mucus FEW /lpf Microscopic Urinalysis Comment CULT NOT INDICATED White Blood Count 8.0 TH/MM3 Red Blood Count 5.23 MIL/MM3 Hemoglobin 16.6 GM/DL Hematocrit 47.1 % Mean Corpuscular Volume 90.1 FL Mean Corpuscular Hemoglobin 31.8 PG Mean Corpuscular Hemoglobin Concent 35.3 % Red Cell Distribution Width 13.6 % Platelet Count 216 TH/MM3 Mean Platelet Volume 8.2 FL Neutrophils (%) (Auto) 53.3 % Lymphocytes (%) (Auto) 36.9 % Monocytes (%) (Auto) 7.9 % Eosinophils (%) (Auto) 1.6 % Basophils (%) (Auto) 0.3 % Neutrophils # (Auto) 4.3 TH/MM3 Lymphocytes # (Auto) 3.0 TH/MM3 Monocytes # (Auto) 0.6 TH/MM3 Eosinophils # (Auto) 0.1 TH/MM3 Basophils # (Auto) 0.0 TH/MM3 CBC Comment DIFF FINAL Differential Comment Prothrombin Time 9.4 SEC Prothromb Time International Ratio 0.9 RATIO Activated Partial Thromboplast Time 24.5 SEC Blood Urea Nitrogen 13 MG/DL Creatinine 1.02 MG/DL Random Glucose 94 MG/DL Total Protein 7.2 GM/DL Albumin 3.4 GM/DL Calcium Level 8.1 MG/DL Alkaline Phosphatase 77 U/L Aspartate Amino Transf (AST/SGOT) 28 U/L Alanine Aminotransferase (ALT/SGPT) 44 U/L Total Bilirubin 0.3 MG/DL Sodium Level 137 MEQ/L Potassium Level 4.4 MEQ/L Chloride Level 103 MEQ/L Carbon Dioxide Level 25.6 MEQ/L Anion Gap 8 MEQ/L Estimat Glomerular Filtration Rate 78 ML/MIN Lipase 334 U/L [facility] Medical Decision Making Medical Screen Exam Complete: Yes Emergency Medical Condition: Yes Medical Record Reviewed: Yes Differential Diagnosis Appendicitis, colitis, diverticulitis, UTI, cystitis, nephrolithiasis Narrative Course Vital signs show heart rate 92, blood pressure 136/85, pulse ox 96% on room air , tympanic temp of 99.2F. CBC is unremarkable. CMP is unremarkable. UA is not suggestive of UTI. No hematuria. CT abdomen pelvis: CONCLUSION: 1. No acute abnormality is seen. 2. Left colon diverticula. 3. Hepatic steatosis. 4. Several small stable hypodensities in the liver. These are nonspecific. They likely represent cysts or hemangiomas. 5. Nonobstructing small 2 mm left renal stone. Patient was made aware of all findings. He is resting comfortably. He is stable for discharge home with further outpatient follow-up with a primary care physician this week. I will also given the name of the wine maker provider relations specialist with whom to follow-up with this week. He was informed on when to return to the emergency department. He verbalizes understanding and agreement with plan. Diagnosis Primary Impression: Abdominal pain Qualified Codes: R10.31 - Right lower quadrant pain Referrals: Merary Hendricks MD 3 days Steward/Stewardess [facility] 3 days Primary Care Physician 3 days Additional Instructions: Follow-up with a primary care physician this week. Follow-up with wine maker Dr. Hendricks or a wine maker of your choice this week. Return to the emergency department for worsening symptoms or any other concerns. Disposition: 01 DISCHARGE HOME Condition: Stable Darci Das MD Apr 09, 2017 17:35
[2017-04-09] MEDS ORDERED: MORPHINE SULFATE 4 MG/ML INJ IV PUSH ONE (17:45)
[2017-04-09] MEDS ORDERED: ONDANSETRON HCL 4 MG/2 ML VIAL IVP ONE (17:45)
[2017-04-09] MEDS ORDERED: SODIUM CHLORIDE 0.9% FLUSH 10 ML FLUSH IV FLUSH PRN (17:45)
[2017-04-09] MEDS ORDERED: DIATRIZOATE MEGLUM/DIATRIZOATE SOD 9 ML CUP PO ONE (18:00)
[2017-04-09 18:18] LABS: AUTOMATED NEUTROPHIL # 4.3 TH/MM3 (1.8-7.7); BASOPHIL % 0.3 % (0.0-2.0); EOSINOPHIL # 0.1 TH/MM3 (0-0.4); EOSINOPHIL % 1.6 % (0.0-4.0); HEMATOCRIT 47.1 % (39.0-51.0); HEMO FLAGS DIFF FINAL; LYMPH % 36.9 % (9.0-44.0); MEAN CELL VOLUME 90.1 FL (80.0-100.0); MEAN CORPUSCULAR HEMOGLOBIN 31.8 PG (27.0-34.0); MEAN CORPUSCULAR HGB CONC 35.3 % (32.0-36.0); MONO % 7.9 % (0.0-8.0); NEUT % 53.3 % (16.0-70.0); PLATELET COUNT 216 TH/MM3 (150-450); RED BLOOD COUNT 5.23 MIL/MM3 (4.50-5.90); RED CELL DISTRIBUTION WIDTH 13.6 % (11.6-17.2)
[2017-04-09 18:28] LABS: APTT (PATIENT) 24.5 SEC (24.3-30.1); INTERNATIONAL NORMALIZED RATIO 0.9 RATIO; PROTHROMBIN TIME - PATIENT 9.4 SEC (9.8-11.6)
[2017-04-09 18:30] LABS: BLOOD, URINE NEG (NEG); COMMENT (UR) CULT NOT INDICATED; CULTURE IF INDICATED CULT NOT INDICATED; GLUCOSE,URINE NEG (NEG); KETONE, URINE NEG (NEG); MUCUS URINE FEW /lpf (OCC); NITRITE,URINE NEG (NEG); PH, URINE 5.5 (5.0-8.5); SQUAMOUS EPITHELIAL CELL URINE <1 /hpf (0-5); URINE COLOR YELLOW (YELLW/STRAW)
[2017-04-09 18:44] LABS: ALT (GPT) 44 U/L (12-78)
[2017-04-09 18:46] LABS: ALKALINE PHOSPHATASE 77 U/L (45-117); TOTAL BILIRUBIN ADULT 0.3 MG/DL (0.2-1.0)
[2017-04-09 18:47] LABS: ANION GAP 8 MEQ/L (5-15); AST (GOT) 28 U/L (15-37); BICARBONATE 25.6 MEQ/L (21.0-32.0); BLOOD UREA NITROGEN 13 MG/DL (7-18); CHLORIDE 103 MEQ/L (98-107); GLOMERULAR FILTRATION RATE 78 ML/MIN (>89); SODIUM (NA) 137 MEQ/L (136-145)
[2017-04-09 18:53] LABS: POTASSIUM 4.4 MEQ/L (3.5-5.1)
[2017-04-09] MEDS ORDERED: IOHEXOL 350 MG/ML 10 ML VIAL (for RAD DIAG) IVCONTRAST ONE (19:16)
--- NOTE | 2017-04-09 19:33 | RADRPT ---
EXAM DATE/TIME: 04/09/2017 18:59 [facility] COMPARISON: CT ABDOMEN & PELVIS W CONTRAST, February 08, 2017, 21:43. INDICATIONS : Right sided abdominal pain X one week. IV CONTRAST: 96 cc Omnipaque 350 (iohexol) IV ORAL CONTRAST: Prescribed oral contrast ingested. RADIATION DOSE: 9.83 CTDIvol (mGy) MEDICAL HISTORY : None SURGICAL HISTORY : None. ENCOUNTER: Initial ACUITY: 1 week PAIN SCALE: 7/10 LOCATION: Right abdomen TECHNIQUE: Volumetric scanning of the abdomen and pelvis was performed. Using automated exposure control and ad justment of the mA and/or kV according to patient size, radiation dose was kept as low as reasonably achievable to obtain optimal diagnostic quality images. DICOM format image data is available electro nically for review and comparison. FINDINGS: LOWER LUNGS: The visualized lower lungs are clear. LIVER: There is diffuse decreased attenuation to the liver. There are several small subcentimeter hypodensit ies seen in the right lobe. These appear stable. The gallbladder is unremarkable. SPLEEN: Normal size without lesion. PANCREAS: Within normal limits. KIDNEYS: There is a 2 mm nonobstructing left renal stone seen at the inferior left collecting system. No hydro nephrosis is seen. Both kidneys demonstrate normal enhancement. ADRENAL GLANDS: Within normal limits. VASCULAR: There is no aortic aneurysm. BOWEL/MESENTERY: There are colonic diverticula in the left-sided colon. Significant surrounding inflammatory change is not seen. The appendix appears normal. ABDOMINAL WALL: Within normal limits. RETROPERITONEUM: There is no lymphadenopathy. BLADDER: No wall thickening or mass. REPRODUCTIVE: Prostatic calcifications are present. INGUINAL: There is no lymphadenopathy or hernia. MUSCULOSKELETAL: Within normal limits for patient age. CONCLUSION: 1. No acute abnormality is seen. 2. Left colon diverticula. 3. Hepatic steatosis. 4. Several small stable hypodensities in the liver. These are nonspecific. They likely represent cyst s or hemangiomas. 5. Nonobstructing small 2 mm left renal stone. Andrei Villagran MD on April 09, 2017 at 19:23 Board Certified Radiologist. This report was verified electronically.
== END 2017-04-09 20:10 | disposition home or self-care (01) ==
LOC: NEPD 17:04
DX: R10.31 Right lower quadrant pain (principal); N20.0 Calculus of kidney; K76.0 Fatty (change of) liver, not elsewhere classified; F41.9 Anxiety disorder, unspecified; F17.200 Nicotine dependence, unspecified, uncomplicated; Z87.19 Personal history of other diseases of the digestive system
CPT/HCPCS: 74177; 80053; 81001; 83690; 85025; 85610; 85730; 96374; 96375; 99285; J2405; J7030; Q9963; Q9967

== ENCOUNTER 2017-04-26 18:46 | Emergency (ER) | payer SELFPAY ==
[2017-04-26 18:50] VITALS: BP 146/81; PULSE 92; RESP 18; TEMP 99; O2SAT 97
--- NOTE | 2017-04-26 20:03 | RADRPT ---
EXAM DATE/TIME: 04/26/2017 19:50 [facility] COMPARISON: No previous studies available for comparison. INDICATIONS : Patient complains of cough and right sided chest/rib pain. MEDICAL HISTORY : None. SURGICAL HISTORY : None. ENCOUNTER: Initial ACUITY: 4 - 6 days PAIN SCORE: 3/10 LOCATION: Right chest FINDINGS: PA and lateral views of the chest demonstrate the lungs to be symmetrically aerated without evidence of mass, infiltrate or effusion. The cardiomediastinal contours are unremarkable. Osseous structure s are intact. CONCLUSION: 1. No acute cardiopulmonary disease. Gio Kendrick MD on April 26, 2017 at 20:01 Board Certified Radiologist. This report was verified electronically.
[2017-04-26] MEDS ORDERED: ZITHTAB PO (20:45)
[2017-04-26] MEDS ORDERED: BENZ100 PO (20:45)
[2017-04-26] MEDS ORDERED: VENTAER INH (20:45)
--- NOTE | 2017-04-26 20:49 | PD ---
HPI Chief Complaint: Cold / Flu Symptoms Time Seen by Provider: 20:39 Travel History International Travel<30 days: No Contact w/Intl Traveler<30days: No Traveled to known affect area: No History of Present Illness HPI Patient comes in complaining of cough congestion ongoing for approximately a week. Denies any fevers, nausea, vomiting, diarrhea. Patient reports associated sore throat that began over the past couple of days. Denies any radiation of the pain. Patient using [id number] medication with minimal relief of symptoms. Patient reports that he was around his mother who was recently treated for pneumonia. Denies any other known sick contacts. Denies anything making symptoms worse. PFSH Past Medical History Blood Disorders: No Anxiety: Yes Depression: Yes Heart Rhythm Problems: No Cancer: No Cardiac Catheterization: No Cardiovascular Problems: No (diverticulitis) High Cholesterol: No Congestive Heart Failure: No Diabetes: No Diminished Hearing: No Diverticulitis: Yes (2006) Endocrine: No Gastrointestinal Disorders: Yes Genitourinary: No Heparin Induced Thrombocytopen: No Hypertension: No Immune Disorder: No Implanted Vascular Access Dvce: No Musculoskeletal: No Neurologic: No Psychiatric: Yes Reproductive: No Respiratory: Yes Immunizations Current: Yes Myocardial Infarction: No Past Surgical History Coronary Artery Bypass Graft: No Oral Surgery: Yes (CYST REMOVAL FROM UNDER TONGUE) Other Surgery: Yes (HAND SURGERY (TENDON)) Social History Alcohol Use: Yes (OCCASIONALLY) Tobacco Use: Yes (1 PPD) Substance Use: No Allergies-Medications (Allergen,Severity, Reaction): Coded Allergies: latex (Unverified Allergy, Severe, Rash, 04/09/17) codeine (Unverified Adverse Reaction, Severe, VOMITING, 04/09/17) Reported Meds & Prescriptions Reported Meds & Active Scripts Active Tessalon Perles (Benzonatate) 100 Mg Cap 200 Mg PO Q8HR PRN Zithromax Z-Oscar (Azithromycin) 250 Mg Dspk 250 Mg PO DIRECTED 500 MG (2 tabs) day 1, then 1 tab days 2-5. Ventolin Hfa 18 GM Inh (Albuterol Sulfate) 90 Mcg/Act Aer 2 Puff INH Q4H PRN Review of Systems Except as stated in HPI: all other systems reviewed are Neg Physical Exam Narrative GENERAL: Well-developed, overly nourished, in no acute distress, and non-ill appearing. SKIN: Focused skin assessment warm and dry. HEAD: Atraumatic. Normocephalic. EYES: Pupils equal and round. EOMI. No scleral icterus. No injection or drainage. ENT: No nasal bleeding or discharge. Mucous membranes pink and moist. Tympanic membranes pearly gamez bilaterally. Posterior pharynx nonerythematous without exudate. Uvula is midline. No tenderness to facial sinuses to palpation. NECK: Trachea midline. No cervical lymphadenopathy. Supple. No nuclear rigidity. CARDIOVASCULAR: Regular rate and rhythm. No murmur appreciated. RESPIRATORY: No accessory muscle use. No respiratory distress. Clear to auscultation. Breath sounds equal bilaterally. Dry cough noted on exam. Patient able to speak in full sentences without difficulty. MUSCULOSKELETAL: No obvious deformities. No clubbing. No cyanosis. No edema. Full range of motion. NEUROLOGICAL: Awake and alert. No obvious cranial nerve deficits. Motor grossly within normal limits. Normal speech. PSYCHIATRIC: Appropriate mood and affect; insight and judgment normal. Data Data Last Documented VS Vital Signs Date Time Temp Pulse Resp B/P (MAP) Pulse Ox O2 Delivery O2 Flow Rate FiO2 04/26/17 20:59 04/26/17 18:50 99.0 92 18 97 Room Air Orders Orders Chest, Pa & Lat (04/26/17 ) Influenzae A/B Antigen (04/26/17 19:12) Ed Discharge Order (04/26/17 20:49) MDM Medical Decision Making Medical Screen Exam Complete: Yes Emergency Medical Condition: Yes Differential Diagnosis Influenza, bronchitis, pneumonia, URI, viral syndrome Narrative Course Patients symptom complex is consistent with bronchitis. The patient is nonillappearing and is in no respiratory distress and comfortable. The patient moves air well and oxygen saturations are normal. Chest x-ray revealed no evidence of obvious consolidation of infiltrate. There is no clinical evidence to suggest pneumonia at this time. Plan of care and management were discussed with the patient who agreed with plan. The patient was instructed to follow up with their physician and instructed to return if worsens, progressively worsening shortness of breath or difficulty breathing, persistent fever, chest pains or discomfort, inability to keep medication or fluids down with or without vomiting, or as needed. Patient in no obvious distress upon re-evaluation. All pertinent laboratory/ Radiology result(s) discussed with patient. Patient was asked if they wanted to speak to my attending, which the patient did not wish to do at this time. Any questions/concerns in reference to patient diagnosis/condition discussed and clarified prior to patient's discharge. Reinforced sheer importance of close follow up with patient's primary physician or primary care clinic. Instructed patient to return to ED immediately, if symptoms return/worsen. Patient showed understanding of above instructions. Further instructions and recommendations were detailed in discharge paperwork. Patient ambulated without difficulty out of ED at discharge. Diagnosis Primary Impression: Bronchitis Referrals: [facility] Patient Instructions: Acute Bronchitis (ED), General Instructions Departure Forms: Work Release Enter return to work date: Apr 27, 2017 Additional Instructions: Follow-up with your primary care physician in 3-5 days for evaluation. Take all medication as prescribed. Use [id number] Tylenol and/or ibuprofen as needed for pain and/or fevers. Follow instructions on the packaging. Drink plenty of non-caffeinated and nonalcoholic fluids. Return to the emergency department if symptoms get worse. Med/Other Pt SpecificInfo: Prescription(s) given Scripts Benzonatate (Tessalon Perles) 100 Mg Cap 200 MG PO Q8HR Y for COUGH, #30 CAP 0 Refills Prov: Dodie Kebede MD 04/26/17 Azithromycin (Zithromax Z-Oscar) 250 Mg Dspk 250 MG PO DIRECTED for Infection, #1 DSPK 0 Refills 500 MG (2 tabs) day 1, then 1 tab days 2-5. Prov: Dodie Kebede MD 04/26/17 Albuterol 18 GM Inh (Ventolin Hfa 18 GM Inh) 90 Mcg/Act Aer 2 PUFF INH Q4H Y for COUGH, #1 INHALER 0 Refills Prov: Dodie Kebede MD 04/26/17 Disposition: 01 DISCHARGE HOME Condition: Stable Gonzalez Barbosa Apr 26, 2017 20:49
== END 2017-04-26 21:07 | disposition home or self-care (01) ==
LOC: NEPK 18:46
DX: J40 Bronchitis, not specified as acute or chronic (principal); F17.200 Nicotine dependence, unspecified, uncomplicated
CPT/HCPCS: 71020; 87804; 99284

== ENCOUNTER 2017-05-14 19:39 | Emergency (ER) | payer SELFPAY ==
[~2017-05-14] VITALS: Ht 175.3 cm; Wt 105.0 kg
[~2017-05-14 19:39] MED LIST changes: +BENZ100 PO; -IBUP-232 PO; +VENTAER INH; +ZITHTAB PO
[2017-05-14 19:40] VITALS: BP 142/77; PULSE 77; RESP 16; TEMP 99.1; O2SAT 98
[2017-05-14 20:22] VITALS: BP 132/86; PULSE 74; RESP 16; O2SAT 96
[2017-05-14] MEDS ORDERED: KETOROLAC TROMETHAMINE 30 MG/ML (IVP) VIAL IV PUSH ONE (21:00)
[2017-05-14] MEDS ORDERED: metroNIDAZOLE 500 MG TAB PO ONE (21:00)
[2017-05-14] MEDS ORDERED: LEVOFLOXACIN 500 MG TAB PO ONE (21:00)
[2017-05-14 21:11] LABS: BASOPHIL % 0.5 % (0.0-2.0); EOSINOPHIL # 0.2 TH/MM3 (0-0.4); EOSINOPHIL % 2.8 % (0.0-4.0); HEMATOCRIT 49.1 % (39.0-51.0); HEMOGLOBIN 17.2 GM/DL (13.0-17.0); LYMPH % 43.3 % (9.0-44.0); LYMPHOCYTE # 3.7 TH/MM3 (1.0-4.8); MEAN CELL VOLUME 89.4 FL (80.0-100.0); MEAN CORPUSCULAR HEMOGLOBIN 31.2 PG (27.0-34.0); MEAN CORPUSCULAR HGB CONC 34.9 % (32.0-36.0); MEAN PLATELET VOLUME 8.4 FL (7.0-11.0); MONO % 6.1 % (0.0-8.0); MONOCYTE # 0.5 TH/MM3 (0-0.9); NEUT % 47.3 % (16.0-70.0); PLATELET COUNT 232 TH/MM3 (150-450); RED CELL DISTRIBUTION WIDTH 13.7 % (11.6-17.2); WHITE BLOOD COUNT 8.5 TH/MM3 (4.0-11.0)
[2017-05-14 21:12] LABS: BILIRUBIN, URINE NEG (NEG); BLOOD, URINE NEG (NEG); GLUCOSE,URINE NEG (NEG); KETONE, URINE NEG (NEG); NITRITE,URINE NEG (NEG); PH, URINE 5.5 (5.0-8.5); URINE COLOR LIGHT-YELLOW (YELLW/STRAW); URINE LEUKOCYTE ESTERASE NEG (NEG)
[2017-05-14 21:26] LABS: ALT (GPT) 31 U/L (12-78)
[2017-05-14 21:29] LABS: ALKALINE PHOSPHATASE 89 U/L (45-117); TOTAL BILIRUBIN ADULT 0.2 MG/DL (0.2-1.0); TOTAL PROTEIN 7.6 GM/DL (6.4-8.2)
[2017-05-14 21:36] LABS: ALBUMIN 3.7 GM/DL (3.4-5.0); AST (GOT) 20 U/L (15-37); BICARBONATE 26.4 MEQ/L (21.0-32.0); BLOOD UREA NITROGEN 14 MG/DL (7-18); CALCIUM 8.9 MG/DL (8.5-10.1); CHLORIDE 105 MEQ/L (98-107); CREATININE 1.21 MG/DL (0.60-1.30); GLOMERULAR FILTRATION RATE 64 ML/MIN (>89); GLUCOSE,RANDOM 92 MG/DL (74-106); LIPASE 277 U/L (73-393); SODIUM (NA) 138 MEQ/L (136-145)
[2017-05-14] MEDS ORDERED: CIPR-9 PO (22:19)
[2017-05-14] MEDS ORDERED: METR-1 PO (22:19)
[2017-05-14] MEDS ORDERED: TRAM50TA PO (22:19)
--- NOTE | 2017-05-14 22:26 | PD ---
HPI Chief Complaint: Abdominal Pain Time Seen by Provider: 20:20 Travel History International Travel<30 days: No Contact w/Intl Traveler<30days: No Traveled to known affect area: No History of Present Illness HPI 47-year-old male presents to the emergency department for complaint of localized left lower quadrant abdominal pain. Patient has prior history of kidney stones and diverticulosis. Patient states symptoms have worsened over the past few days. No fever chills has had some nausea and has noted some diarrheal type stools. No recent immunization of antibiotic therapy. Patient is concerned that he may have diverticulitis. Patient has been able to continue to work but states that he needs a work excuse as well. Patient otherwise feels well voicing no concerns or complaints. Patient rates his pain at worst 4/10 in intensity. PFSH Past Medical History Narrative Medical Anxiety depression kidney stones diverticulitis oral surgery; tobacco use alcohol use; nursing notes reviewed Blood Disorders: No Anxiety: Yes Depression: Yes Heart Rhythm Problems: No Cancer: No Cardiac Catheterization: No Cardiovascular Problems: No (diverticulitis) High Cholesterol: No Congestive Heart Failure: No Diabetes: No Diminished Hearing: No Diverticulitis: Yes (2006) Endocrine: No Gastrointestinal Disorders: Yes Genitourinary: No Heparin Induced Thrombocytopen: No Hypertension: No Immune Disorder: No Implanted Vascular Access Dvce: No Musculoskeletal: No Neurologic: No Psychiatric: Yes Reproductive: No Respiratory: Yes Immunizations Current: Yes Myocardial Infarction: No Past Surgical History Coronary Artery Bypass Graft: No Oral Surgery: Yes (CYST REMOVAL FROM UNDER TONGUE) Other Surgery: Yes Social History Alcohol Use: Yes (OCCASIONALLY) Tobacco Use: Yes (1 PPD) Substance Use: No Allergies-Medications (Allergen,Severity, Reaction): Coded Allergies: latex (Unverified Allergy, Severe, Rash, 05/14/17) codeine (Unverified Adverse Reaction, Severe, VOMITING, 05/14/17) Reported Meds & Prescriptions Reported Meds & Active Scripts Active Tramadol (Tramadol HCl) 50 Mg Tab 50 Mg PO Q6H PRN Cipro (Ciprofloxacin HCl) 500 Mg Tab 500 Mg PO BID 10 Days Flagyl (Metronidazole) 500 Mg Tab 500 Mg PO TID 7 Days Ventolin Hfa 18 GM Inh (Albuterol Sulfate) 90 Mcg/Act Aer 2 Puff INH Q4H PRN Review of Systems Except as stated in HPI: all other systems reviewed are Neg Physical Exam Narrative GENERAL: Well-developed well-nourished male in no acute distress no respiratory distress SKIN: Warm and dry. HEAD: Normocephalic. EYES: No scleral icterus. No injection or drainage. NECK: Supple, trachea midline. No JVD or lymphadenopathy. CARDIOVASCULAR: Regular rate and rhythm without murmurs, gallops, or rubs. RESPIRATORY: Breath sounds equal bilaterally. No accessory muscle use. GASTROINTESTINAL: Abdomen soft, mild left lower quadrant tenderness to direct palpation no guarding or rebound, nondistended. MUSCULOSKELETAL: No cyanosis, or edema. BACK: Nontender without obvious deformity. No CVA tenderness. Data Data Last Documented VS Vital Signs Date Time Temp Pulse Resp B/P (MAP) Pulse Ox O2 Delivery O2 Flow Rate FiO2 05/14/17 22:29 70 16 134/79 (97) 97 05/14/17 20:22 Room Air 05/14/17 19:40 99.1 Orders Orders Complete Blood Count With Diff (05/14/17 20:53) Comprehensive Metabolic Panel (05/14/17 20:53) Lipase (05/14/17 20:53) Urinalysis - C+S If Indicated (05/14/17 20:53) Iv Access Insert/Monitor (05/14/17 20:53) Ecg Monitoring (05/14/17 20:53) Oximetry (05/14/17 20:53) Ketorolac Inj (Toradol Inj) (05/14/17 21:00) Levofloxacin (Levaquin) (05/14/17 21:00) Metronidazole (Flagyl) (05/14/17 21:00) Ed Discharge Order (05/14/17 22:17) Labs Laboratory Tests Test 05/14/17 21:00 White Blood Count 8.5 TH/MM3 Red Blood Count 5.50 MIL/MM3 Hemoglobin 17.2 GM/DL Hematocrit 49.1 % Mean Corpuscular Volume 89.4 FL Mean Corpuscular Hemoglobin 31.2 PG Mean Corpuscular Hemoglobin Concent 34.9 % Red Cell Distribution Width 13.7 % Platelet Count 232 TH/MM3 Mean Platelet Volume 8.4 FL Neutrophils (%) (Auto) 47.3 % Lymphocytes (%) (Auto) 43.3 % Monocytes (%) (Auto) 6.1 % Eosinophils (%) (Auto) 2.8 % Basophils (%) (Auto) 0.5 % Neutrophils # (Auto) 4.0 TH/MM3 Lymphocytes # (Auto) 3.7 TH/MM3 Monocytes # (Auto) 0.5 TH/MM3 Eosinophils # (Auto) 0.2 TH/MM3 Basophils # (Auto) 0.0 TH/MM3 CBC Comment DIFF FINAL Differential Comment Urine Color LIGHT-YELLOW Urine Turbidity CLEAR Urine pH 5.5 Urine Specific [place] 1.007 Urine Protein NEG mg/dL Urine Glucose (UA) NEG mg/dL Urine Ketones NEG mg/dL Urine Occult Blood NEG Urine Nitrite NEG Urine Bilirubin NEG Urine Urobilinogen LESS THAN 2.0 MG/DL Urine Leukocyte Esterase NEG Urine WBC LESS THAN 1 /hpf Microscopic Urinalysis Comment CULT NOT INDICATED Blood Urea Nitrogen 14 MG/DL Creatinine 1.21 MG/DL Random Glucose 92 MG/DL Total Protein 7.6 GM/DL Albumin 3.7 GM/DL Calcium Level 8.9 MG/DL Alkaline Phosphatase 89 U/L Aspartate Amino Transf (AST/SGOT) 20 U/L Alanine Aminotransferase (ALT/SGPT) 31 U/L Total Bilirubin 0.2 MG/DL Sodium Level 138 MEQ/L Potassium Level 4.2 MEQ/L Chloride Level 105 MEQ/L Carbon Dioxide Level 26.4 MEQ/L Anion Gap 7 MEQ/L Estimat Glomerular Filtration Rate 64 ML/MIN Lipase 277 U/L MDM Medical Decision Making Medical Screen Exam Complete: Yes Emergency Medical Condition: Yes Medical Record Reviewed: Yes Interpretation(s) CBC & BMP Diagram 05/14/17 21:00 Total Protein 7.6, Albumin 3.7, Calcium Level 8.9, Alkaline Phosphatase 89, Aspartate Amino Transf (AST/SGOT) 20, Alanine Aminotransferase (ALT/SGPT) 31, Total Bilirubin 0.2 Vital Signs Date Time Temp Pulse Resp B/P (MAP) Pulse Ox O2 Delivery O2 Flow Rate FiO2 05/14/17 20:22 74 16 132/86 (101) 96 Room Air 05/14/17 19:40 99.1 77 16 142/77 (98) 98 Room Air ua: wnl Differential Diagnosis Diverticulitis, renal colic, UTI, colitis Narrative Course Patient with history of diverticulitis and recent CT abdomen and pelvis with evidence of diverticulosis now presents with a few days of localizing left lower quadrant pain without nausea vomiting fever diarrhea or mucoid stool melena or hematochezia. Patient has had some intermittent chills. Patient on exam have localized left lower quadrant tenderness without guarding or rebound. Patient clinically suspicious for bout of diverticulitis. Patient's had recent CT patient's vital signs are normal range obtain CBC chemistries and urinalysis. This point in time patient will be treated clinically for diverticulitis with oral Cipro and Flagyl. Patient given a one-time dose of Toradol 30 mg IV for complaint of 7/10 pain. Patient will be stable for outpatient management and follow-up with his primary as needed. Diagnosis Primary Impression: Diverticulitis Referrals: Primary Care Physician call for appointment Patient Instructions: General Instructions Departure Forms: Tests/Procedures, Work Release Enter return to work date: May 15, 2017 Special Instructions: may reurn to work full duty 05/15/17 Additional Instructions: Increase fluid hydration Complete course of antibiotic as prescribed Follow-up with her primary care provider Take pain medication as prescribed as needed Monitor temperature and take as needed acetaminophen/Tylenol every 4 hours for fever 100.4F or greater and/or ibuprofen/Advil/Motrin Med/Other Pt SpecificInfo: Prescription(s) given Scripts Tramadol (Tramadol) 50 Mg Tab 50 MG PO Q6H Y for PAIN, #5 TAB 0 Refills Prov: Jesusita Turcios MD 05/14/17 Ciprofloxacin (Cipro) 500 Mg Tab 500 MG PO BID for Infection for 10 Days, #20 TAB 0 Refills Prov: Jesusita Turcios MD 05/14/17 Metronidazole (Flagyl) 500 Mg Tab 500 MG PO TID for Infection for 7 Days, TAB 0 Refills Prov: Jesusita Turcios MD 05/14/17 Disposition: 01 DISCHARGE HOME Condition: Stable Jesusita Turcios MD May 14, 2017 22:26
[2017-05-14 22:29] VITALS: BP 134/79
== END 2017-05-14 22:37 | disposition home or self-care (01) ==
LOC: NEPC 19:39
DX: K57.92 Diverticulitis of intestine, part unspecified, without perforation or abscess without bleeding (principal); F41.9 Anxiety disorder, unspecified; F32.9 Major depressive disorder, single episode, unspecified; F17.200 Nicotine dependence, unspecified, uncomplicated; Z79.899 Other long term (current) drug therapy; Z87.442 Personal history of urinary calculi; Z88.5 Allergy status to narcotic agent
CPT/HCPCS: 80053; 81001; 83690; 85025; 96374; 99284; J1885